=== PATIENT | female | born 1950 | race Hispanic/Latino ===

== ENCOUNTER 2024-12-30 14:01 | Observation (INO) | payer OTHER, MEDICAID ==
[~2024-12-30] VITALS: Ht 147.3 cm; Wt 49.4 kg
--- NOTE | 2024-12-30 14:09 | ERN ---
ED Note History of Present Illness Stated Complaint: RECURRENT UTI Chief Complaint: UTI without Fever Time Seen by MD: 14:03 Dictation: PATIENT IS A 74-YEAR-OLD FEMALE HERE WITH HER DAUGHTER WITH COMPLAINTS OF HAVING RECURRENT URINARY TRACT INFECTIONS FOR THE LAST THREE MONTHS. PATIENT HAS BEEN ON MACROBID AND THEN BACTRIM FROM HER PRIMARY CARE DOCTOR NO FLANK PAIN NO BACK PAIN SHE IS HAVING MILD SUPRAPUBIC TENDERNESS. Allergies: Coded Allergies: Penicillins (Unverified Allergy, Unknown, 12/30/24) Past Medical History History: Not Applicable RN Note Reviewed/Agreed w/PFSH: Yes Review of System Dictation CONSTITUTIONAL: NEGATIVE EXCEPT FOR HPI HEAD/FACE: NEGATIVE EXCEPT FOR HPI EENT: NEGATIVE EXCEPT FOR HPI RESPIRATORY: NEGATIVE EXCEPT FOR HPI GASTROINTESTINAL/ABDOMINAL: NEGATIVE EXCEPT FOR HPI GENITOURINARY: NEGATIVE EXCEPT FOR HPI DYSURIA WITH SUPRAPUBIC TENDERNESS MUSCULOSKELETAL: NEGATIVE EXCEPT FOR HPI INTEGUMENTARY: NEGATIVE EXCEPT FOR HPI NEUROLOGICAL/PSYCH: NEGATIVE EXCEPT FOR HPI HEMATOLOGIC/LYMPHATIC: NEGATIVE EXCEPT FOR HPI ALL SYSTEMS NEGATIVE, EXCEPT NOTED ABOVE. 13 POINT REVIEW OF SYSTEMS ASSESSED AND ALL NEGATIVE EXCEPT FOR ABOVE. Initial Vital Sign VS Vital Signs Date Time Temp Pulse Resp B/P (MAP) Pulse Ox O2 Delivery O2 Flow Rate FiO2 12/30/24 14:03 98.1 98 18 137/54 98 Room Air 0 12/30/24 16:23 21 Physical Exam Dictation VITAL SIGNS REVIEWED GENERAL APPEARANCE: ALERT, ORIENTED X 3, MILD ACUTE DISTRESS, WELL DEVELOPED, NOURISHED. HEAD AND FACE: NON-TRAUMATIC. EYES: PERRL, PINK CONJUNCTIVAS, EYELID NO TRAUMA, ANTERIOR CHAMBER WITH ARCUS SENILIS. EARS: PINNAS INTACT AND NO SIGNS OF TRAUMA OR ERYTHEMA EAR CANALS CLEAR AND NO DISCHARGE TM NO ERYTHEMA NOSE: NO DISCHARGE, NO BLEEDING. OROPHARYNX: MOUTH NORMAL, TONGUE PINK, PHARYNX CLEAR,NO ERYTHEMA, TONSILS NO EXUDATES, NO ABSCESSES NOTED, MUCOUS MEMBRANE MOIST NECK: SUPPLE, NON-TENDER, NO THYROMEGALY, NO MASSES, NO JVD, NO BRUITS BREAST:DEFERRED CHEST:NO TENDERNESS, NO CREPITUS, NO PARADOXICAL MOVEMENT, NO RETRACTIONS LUNGS:CLEAR, WELL-VENTILATED, SYMMETRIC, NO RALES, NO WHEEZING, NO RHONCHI, NO STRIDOR, GOOD BREATH SOUNDS BILATERALLY HEART: REGULAR RATE, REGULAR RHYTHM, NO MURMUR, NO GALLOPS VASCULAR: NO PERIPHERAL EDEMA, ABDOMEN: SOFT, POSITIVE BOWEL SOUNDS, NONDISTENDED, NO GUARDING, NONTENDER, NO REBOUND, NO MASSES NO HEPATOMEGALY, NO SPLENOMEGALY, NO AGUILAR'S SIGN, NO HERNIAS. MILD SUPRAPUBIC TENDERNESS WITH PALPATION NEGATIVE CVAT BILATERALLY RECTAL: DEFERRED GENITAL: DEFERRED NEUROLOGICAL: NORMAL SPEECH, MOTOR FUNCTION INTACT, SENSORY FUNCTION INTACT MUSCULOSKELETAL: NECK NONTENDER, FULL RANGE OF MOTION, BACK NONTENDER, FULL RANGE OF MOTION, EXTREMITIES: NONTENDER, FULL RANGE OF MOTION SKIN: COLOR PINK, DRY, NO TURGOR, NO RASH, NO LACERATIONS, NO ABRASIONS, NO CONTUSIONS. LYMPHATIC: DEFERRED Results (Laboratory/Radiology) Laboratory/Radiology Laboratory Tests Test 12/30/24 14:17 12/30/24 14:34 Urine Color YELLOW (YELLOW) Urine Appearance TURBID (CLEAR) Urine pH 6.5 (5.0-8.0) Urine Specific [place] 1.017 (1.001-1.031) Urine Protein 20 mg/dL (NEGATIVE) H Urine Glucose (UA) NEGATIVE mg/dL (NEGATIVE) Urine Ketones NEGATIVE mg/dL (NEGATIVE) Urine Occult Blood MODERATE (NEGATIVE) H Urine Nitrate NEGATIVE (NEGATIVE) Urine Bilirubin NEGATIVE mg/dL (NEGATIVE) Urine Urobilinogen 2.0 mg/dL (0.2-1.0) H Urine Leukocyte Esterase 500 Rad/uL (NEGATIVE) H Urine RBC 11-25 /HPF (0-1) H Urine WBC TNTC /HPF (0-1) H Urine WBC Clumps (Auto) MANY /HPF (0-1) Urine Squamous Epithelial Cells MOD /HPF (0-2) Urine Transitional Epithelial Cells MOD /HPF (None Seen) Urine Bacteria MANY /HPF (None Seen) White Blood Count 4.7 K/uL (4.8-10.8) L Red Blood Count 3.89 MIL/uL (4.00-5.50) L Hemoglobin 12.4 g/dL (12.0-16.0) Hematocrit 36.1 % (36-48) Mean Corpuscular Volume 92.8 fL (79-99) Mean Corpuscular Hemoglobin 31.9 pg (27.0-33.0) Mean Corpuscular Hemoglobin Concent 34.3 g/dL (32.0-36.0) Red Cell Distribution Width 12.9 % (11.0-15.5) Platelet Count 156 K/uL (130-400) Mean Platelet Volume 10.4 fL (7.5-10.5) Immature Granulocyte % (Auto) 0.2 % (0-1) Neutrophils (%) (Auto) 59.8 % (40.0-77.0) Lymphocytes (%) (Auto) 32.5 % (21.0-51.0) Monocytes (%) (Auto) 6.0 % (3.0-13.0) Eosinophils (%) (Auto) 1.1 % (0.0-8.0) Basophils (%) (Auto) 0.4 % (0.0-5.0) Neutrophils # (Auto) 2.8 K/uL (1.8-7.7) Lymphocytes # (Auto) 1.5 K/uL (1.0-4.8) Monocytes # (Auto) 0.3 K/uL (0.1-1.0) Eosinophils # (Auto) 0.05 K/uL (0.00-0.70) Basophils # (Auto) 0.02 K/uL (0.00-0.20) Absolute Immature Granulocyte (auto 0.01 K/uL (0-1) Nucleated Red Blood Cells 0.0 % (0.0-0.19) Sodium Level 134 mmol/L (136-145) L Potassium Level 3.6 mmol/L (3.5-5.1) Chloride Level 99 mmol/L (101-111) L Carbon Dioxide Level 31 mmol/L (21-32) Blood Urea Nitrogen 12 mg/dL (7-18) Creatinine 0.7 mg/dL (0.5-1.0) Glomerular Filtration Rate Calc 90 mL/min (>90) Random Glucose 100 mg/dL (70-105) Lactic Acid Level 1.6 mmol/L (0.8-2.5) Total Calcium 8.2 mg/dL (8.5-10.1) L Labs Reviewed?: Yes ED Course ED Course Orders Procedure Category Date Status Time Blood Cult ART 12/30/24 In Process 14:05 Lactic Acid LAB 12/30/24 Complete 14:05 Cbc With Differential LAB 12/30/24 Complete 14:05 Urinalysis Profile LAB 12/30/24 Complete 14:05 Basic Metabolic Panel LAB 12/30/24 Complete 14:05 0.9%Nacl 1000ml (Ns PHA 12/30/24 Complete 1000ml) 14:30 Culture Urine ART 12/30/24 In Process 14:31 Ceftriaxone 2gm Vial PHA 12/30/24 Complete (Rocephin 2gm Inj) 15:17 Current Medications Medications (Trade) Dose Ordered Sig/Yobany Route PRN Reason Start Time Stop Time Status Last Admin Dose Admin Ceftriaxone Sodium (Rocephin 2gm Inj) 2 gm ONCE STAT IVPB 12/30/24 15:17 12/30/24 15:25 DC 12/30/24 15:29 Sodium Chloride 1,000 ml @ 0 mls/hr ONCE ONCE IV 12/30/24 14:30 12/30/24 14:31 DC 12/30/24 14:40 Vital Signs Date Time Temp Pulse Resp B/P (MAP) Pulse Ox O2 Delivery O2 Flow Rate FiO2 12/30/24 16:23 98.1 95 18 138/56 98 Room Air* 0 21 12/30/24 14:03 98.1 98 18 137/54 98 Room Air 0 1615/SPOKE WITH FAMILY AT LENGTH REGARDING PATIENT HAS HAD RECURRENT URINARY TRACT INFECTIONS OVER THE LAST THREE MONTHS WITH OUTPATIENT TREATMENT FAILURE. FAMILY STATES SHE HAS BEEN MORE CONFUSED SINCE SHE STARTED HAVING THE URINARY TRACT INFECTIONS DESPITE THE OUTPATIENT ANTIBIOTIC THERAPY. THEY ARE ALSO AWARE THAT SHE HAS DEHYDRATED WOULD LIKE HER ADMITTED TO THE HOSPITAL FOR URINARY CULTURE AND SENSITIVITY, TREATMENT OF HER DEHYDRATION CONSULTATION WITH A UROLOGY.1635/SPOKE WITH , REVIEWED LABS, INTERVENTI ONS FOR UTI AND HYPOCHLOREMIA HE AGREED TO ADMIT. Medical Decision Making MDM MDM: DIFFERENTIAL DIAGNOSIS: UTI/SEPSIS/ELECTROLYTE IMBALANCE/DEHYDRATION/DEMENTIA/ALTERED MENTAL STATUS/OUTPATIENT TREATMENT FAILURE RATIONALE: TESTS CONSIDERED AND ORDERED SECONDARY TO SHARED DECISION MAKING INCLUDE: LABS, ECG AND RADIOLOGY PREVIOUS OUTSIDE RECORDS REVIEWED: OLD ER VISITS. RISK OF COMPLICATION AND/OR MORBIDITY OR MORTALITY OF PATIENT MANAGEMENT: NONE MEDICATIONS-PER MEDICATION RECONCILIATION NEED FOR HOSPITALIZATION: PATIENT DOES MEET CRITERIA FOR HOSPITALIZATION. IV FLUIDS IV ANTIBIOTICS AND UROLOGY CONSULTATION NEED FOR EMERGENCY MAJOR/MINOR SURGERY: NO THERE ARE NO SOCIAL CONCERNS WITH THIS PATIENT. PRESCRIPTION DRUG MANAGEMENT PRESCRIPTIONS WILL INCLUDE SYMPTOMATIC CARE PATIENT'S PRIOR EXTERNAL MEDICAL RECORDS FROM OTHER ER VISITS WERE REVIEWED BY ME INDICATED. PRIOR TESTING AND RESULTS FROM PREVIOUS VISITS WERE REVIEWED. PRIOR TESTS WERE TAKEN INTO ACCOUNT WITH MEDICAL DECISION MAKING AND RESOURCE UTILIZATION, INDEPENDENT HISTORIAN/HISTORIANS WERE USED TO OBTAIN COMPLETE MEDICAL HISTORY. I INDEPENDENTLY INTERPRETED THE TEST THAT WERE PERFORMED, RESULTS WERE REVIEWED BY ME AND CONSIDERED FINDINGS ON RADIOLOGY IF ORDERED. MEDICAL MANAGEMENT AND EXAMINATION INTERPRETATION DISCUSSIONS WERE HAD BY ME WITH OTHER QUALIFIED HEALTHCARE PROFESSIONALS INDICATED FOR THE PATIENT'S CARE. DX & DISP Disposition: Inpatient Decision to Admit Time: 16:17 Departure Impression: Primary Impression: Acute cystitis with hematuria Additional Impressions: Hyponatremia, Hypochloremia, Chronic anemia, Dementia, Failure of outpatient treatment Condition: Stable Referrals: SELF,REFERRAL (PCP) Time of Disposition: 16:17 I have reviewed the case, and I agree with, Diagnosis and Plan SKYLER ROWE NP Dec 30, 2024 14:09
[2024-12-30 14:30] LABS: APPEARANCE,URINE TURBID (CLEAR); GLUCOSE, URINE (UA) NEGATIVE (NEGATIVE); LEUKOCYTE ESTERASE ,URINE 500 Leu/uL (NEGATIVE); NITRATE,URINE NEGATIVE (NEGATIVE); OCCULT BLOOD,URINE MODERATE (NEGATIVE)
[2024-12-30 14:31] LABS: ADD UA MICROSCOPIC YES
[2024-12-30 14:38] LABS: SQUAMOUS EPITHELIAL CELL,UR MOD /HPF (0-2); WBC CLUMP MANY /HPF (0-1)
[2024-12-30] MEDS: 0.9%NACL 1000ML 1,000 ML IV ONE (14:40)
[2024-12-30 14:49] LABS: IMMATURE GRANULOCYTE ABSOLUTE 0.01 K/uL (0-1); NUCLEATED RED BLOOD CELLS 0.0 % (0.0-0.19); PLATELET COUNT (AUTO) 156 K/uL (130-400); RED BLOOD CELL COUNT(AUTO) 3.89 MIL/uL (4.00-5.50); RED CELL DISTRIBUTION WIDTH 12.9 % (11.0-15.5); WHITE BLOOD COUNT (AUTO) 4.7 K/uL (4.8-10.8)
[2024-12-30 15:03] LABS: CREATININE 0.7 mg/dL (0.5-1.0); GLOMERULAR FILTR. RATE CALC 90.0 mL/min (>90); GLUCOSE,RANDOM 100.0 mg/dL (70-105); SODIUM SERUM 134.0 mmol/L (136-145); UREA NITROGEN, BLOOD 12.0 mg/dL (7-18)
[2024-12-30] MEDS ORDERED: MEMA1CAP3 PO (18:00)
[2024-12-30] MEDS ORDERED: ROSU10TA98 PO (18:00)
[2024-12-30] MEDS ORDERED: METF-444 PO (18:00)
[2024-12-30] MEDS ORDERED: ASPI-1443 PO (18:00)
[2024-12-30] MEDS ORDERED: TELM20TA8 PO (18:00)
[2024-12-30] MEDS ORDERED: VORT20TA PO (18:00)
--- NOTE | 2024-12-30 18:01 | NUR ---
MEDICATIONS RECONCILED
--- NOTE | 2024-12-30 21:00 | HP ---
HISTORY AND PHYSICAL NOTE DATE OF CONSULTATION: 12/30/24 REASON FOR CONSULTATION: Dysuria HISTORY OF PRESENT ILLNESS: PATIENT IS A 74-YEAR-OLD FEMALE HERE WITH HER DAUGHTER WITH COMPLAINTS OF HAVING RECURRENT URINARY TRACT INFECTIONS FOR THE LAST THREE MONTHS. PATIENT HAS BEEN ON MACROBID AND THEN BACTRIM FROM HER PRIMARY CARE DOCTOR NO FLANK PAIN NO BACK PAIN SHE IS HAVING MILD SUPRAPUBIC TENDERNESS. Allergies: Coded Allergies: Penicillins (Unverified Allergy, Unknown, 12/30/24) Past Medical History History: Not Applicable RN Note Reviewed/Agreed w/PFSH: Yes Review of System Dictation CONSTITUTIONAL: NEGATIVE EXCEPT FOR HPI HEAD/FACE: NEGATIVE EXCEPT FOR HPI EENT: NEGATIVE EXCEPT FOR HPI RESPIRATORY: NEGATIVE EXCEPT FOR HPI GASTROINTESTINAL/ABDOMINAL: NEGATIVE EXCEPT FOR HPI GENITOURINARY: NEGATIVE EXCEPT FOR HPI DYSURIA WITH SUPRAPUBIC TENDERNESS MUSCULOSKELETAL: NEGATIVE EXCEPT FOR HPI INTEGUMENTARY: NEGATIVE EXCEPT FOR HPI NEUROLOGICAL/PSYCH: NEGATIVE EXCEPT FOR HPI HEMATOLOGIC/LYMPHATIC: NEGATIVE EXCEPT FOR HPI ALL SYSTEMS NEGATIVE, EXCEPT NOTED ABOVE. 13 POINT REVIEW OF SYSTEMS ASSESSED AND ALL NEGATIVE EXCEPT FOR ABOVE. ALLERGIES: Coded Allergies: Penicillins (Unverified Allergy, Unknown, 12/30/24) HOME MEDS: Reported Medications Telmisartan (Telmisartan) 20 Mg Tablet, 1 TAB PO DAILY for 30 Days, #30 TAB 0 Refills 12/30/24 Rosuvastatin Calcium (Rosuvastatin Calcium) 10 Mg Tablet, 20 MG PO DAILY, TAB 12/30/24 Memantine HCl/Donepezil HCl (Namzaric 28 mg-10 mg Capsule) 28 Mg-10 Mg Cap.spr.24, 1 CAP PO HS PRN for IF SBP GREATER THAN for 30 Days, #30 CAP 0 Refi lls 12/30/24 Aspirin (Aspirin EC) 81 Mg Tablet.dr, 1 TAB PO DAILY for 30 Days, #30 TAB 0 Refills 12/30/24 Metformin HCl (Metformin HCl) 500 Mg Tablet, 250 MG PO DAILY, TAB 12/30/24 Vortioxetine Hydrobromide (Brintellix) 20 Mg Tablet, 1 TAB PO DAILY for 30 Days, #30 TAB 0 Refills 12/30/24 INPATIENT MEDS: Current Medications Medications Dose Ordered Sig/Yobany Start Time Stop Time Status Last Admin Ceftriaxone Sodium 1 gm Q24H 12/31/24 09:00 01/07/25 23:55 Sodium Chloride 1,000 ml @ 100 mls/hr Q10H 12/30/24 17:00 01/29/25 16:59 Heparin Sodium (Porcine) 5,000 unit Q12H 12/30/24 21:00 01/07/25 23:55 VITAL SIGNS Vital Signs Date Time Temp Pulse Resp B/P (MAP) Pulse Ox O2 Delivery O2 Flow Rate FiO2 12/30/24 18:34 98.1 88 18 148/52 98 Room Air* 0 21 12/30/24 16:23 98.1 95 18 138/56 98 Room Air* 0 21 12/30/24 14:03 98.1 98 18 137/54 98 Room Air 0 PHYSICAL EXAM VITAL SIGNS REVIEWED GENERAL APPEARANCE: ALERT, ORIENTED X 3, MILD ACUTE DISTRESS, WELL DEVELOPED, NOURISHED. HEAD AND FACE: NON-TRAUMATIC. EYES: PERRL, PINK CONJUNCTIVAS, EYELID NO TRAUMA, ANTERIOR CHAMBER WITH ARCUS SENILIS. EARS: PINNAS INTACT AND NO SIGNS OF TRAUMA OR ERYTHEMA EAR CANALS CLEAR AND NO DISCHARGE TM NO ERYTHEMA NOSE: NO DISCHARGE, NO BLEEDING. OROPHARYNX: MOUTH NORMAL, TONGUE PINK, PHARYNX CLEAR,NO ERYTHEMA, TONSILS NO EXUDATES, NO ABSCESSES NOTED, MUCOUS MEMBRANE MOIST NECK: SUPPLE, NON-TENDER, NO THYROMEGALY, NO MASSES, NO JVD, NO BRUITS BREAST:DEFERRED CHEST:NO TENDERNESS, NO CREPITUS, NO PARADOXICAL MOVEMENT, NO RETRACTIONS LUNGS:CLEAR, WELL-VENTILATED, SYMMETRIC, NO RALES, NO WHEEZING, NO RHONCHI, NO STRIDOR, GOOD BREATH SOUNDS BILATERALLY HEART: REGULAR RATE, REGULAR RHYTHM, NO MURMUR, NO GALLOPS VASCULAR: NO PERIPHERAL EDEMA, ABDOMEN: SOFT, POSITIVE BOWEL SOUNDS, NONDISTENDED, NO GUARDING, NONTENDER, NO REBOUND, NO MASSES NO HEPATOMEGALY, NO SPLENOMEGALY, NO AGUILAR'S SIGN, NO HERNIAS. MILD SUPRAPUBIC TENDERNESS WITH PALPATION NEGATIVE CVAT BILATERALLY RECTAL: DEFERRED GENITAL: DEFERRED NEUROLOGICAL: NORMAL SPEECH, MOTOR FUNCTION INTACT, SENSORY FUNCTION INTACT MUSCULOSKELETAL: NECK NONTENDER, FULL RANGE OF MOTION, BACK NONTENDER, FULL RANGE OF MOTION, EXTREMITIES: NONTENDER, FULL RANGE OF MOTION SKIN: COLOR PINK, DRY, NO TURGOR, NO RASH, NO LACERATIONS, NO ABRASIONS, NO CONTUSIONS. LYMPHATIC: DEFERRED LABORATORY RESULTS Laboratory Tests 12/30/24 14:17: Urine Color YELLOW, Urine Appearance TURBID, Urine pH 6.5, Urine Specific [place] 1.017, Urine Protein 20, Urine Glucose (UA) NEGATIVE, Urine Ketones NEGATIVE, Urine Occult Blood MODERATE, Urine Nitrate NEGATIVE, Urine Bilirubin NEGATIVE, Urine Urobilinogen 2.0, Urine Leukocyte Esterase 500, Urine RBC 11-25, Urine WBC TNTC, Urine WBC Clumps (Auto) MANY, Urine Squamous Epithelial Cells MOD, Urine Transitional Epithelial Cells MOD, Urine Bacteria MANY 12/30/24 14:34: White Blood Count 4.7, Red Blood Count 3.89, Hemoglobin 12.4, Hematocrit 36.1, Mean Corpuscular Volume 92.8, Mean Corpuscular Hemoglobin 31.9, Mean Corpuscular Hemoglobin Concent 34.3, Red Cell Distribution Width 12.9, Platelet Count 156, Mean Platelet Volume 10.4, Immature Granulocyte % (Auto) 0.2, Neutrophils (%) (Auto) 59.8, Lymphocytes (%) (Auto) 32.5, Monocytes (%) (Auto) 6.0, Eosinophils (%) (Auto) 1.1, Basophils (%) (Auto) 0.4, Neutrophils # (Auto) 2.8, Lymphocytes # (Auto) 1.5, Monocytes # (Auto) 0.3, Eosinophils # (Auto) 0.05, Basophils # (Auto) 0.02, Absolute Immature Granulocyte (auto 0.01, Nucleated Red Blood Cells 0.0, Sodium Level 134, Potassium Level 3.6, Chloride Level 99, Carbon Dioxide Level 31, Blood Urea Nitrogen 12, Creatinine 0.7, Glomerular Filtration Rate Calc 90, Random Glucose 100, Lactic Acid Level 1.6, Total Calcium 8.2 PROBLEM LIST: (1) Acute cystitis with hematuria ICD Codes: N30.01 - Acute cystitis with hematuria (2) Failure of outpatient treatment ICD Codes: Z78.9 - Other specified health status (3) Hyponatremia ICD Codes: E87.1 - Hypo-osmolality and hyponatremia (4) Dementia ICD Codes: F03.90 - Unspecified dementia, unspecified severity, without behavioral disturbance, psychotic disturbance, mood disturbance, and anxiety PLAN IV antibiotics hydration monitor as an observation CLAIRE PETIT MD Dec 30, 2024 21:00
[2024-12-30] MEDS ORDERED: CLON0.5T4 PO (22:22)
[2024-12-30] MEDS ORDERED: ACET-66 PO (22:22)
[2024-12-30] MEDS: 1/2 NS 1000ML 1,000 ML IV SCH (22:41)
[2024-12-31 06:51] LABS: IMMATURE GRANULOCYTE ABSOLUTE 0.01 K/uL (0-1); NUCLEATED RED BLOOD CELLS 0.0 % (0.0-0.19); PLATELET COUNT (AUTO) 136 K/uL (130-400); RED BLOOD CELL COUNT(AUTO) 3.74 MIL/uL (4.00-5.50); RED CELL DISTRIBUTION WIDTH 12.6 % (11.0-15.5); WHITE BLOOD COUNT (AUTO) 4.0 K/uL (4.8-10.8)
[2024-12-31 07:02] LABS: ASPARTATE AMINOTRANSFERASE 47.0 U/L (10-37); CREATININE 0.6 mg/dL (0.5-1.0); GLOMERULAR FILTR. RATE CALC 93.0 mL/min (>90); GLUCOSE,RANDOM 79.0 mg/dL (70-105); SODIUM SERUM 140.0 mmol/L (136-145); TOTAL PROTEIN, SERUM 6.0 g/dL (6.0-8.3); UREA NITROGEN, BLOOD 10.0 mg/dL (7-18)
[2024-12-31 07:50] VITALS: BP 136/56; PULSE 56; RESP 14; TEMP 98.1; O2SAT 98
--- NOTE | 2024-12-31 10:06 | DS ---
Discharge Summary DIAGNOSE(S): [uti] HOSPITAL COURSE SUMMARY: [Patient with Alzheimer's dementia presented with more lethargy noted to have UTI treated with antibiotics with one dose she was back to her baseline is being discharged it appears her mental status has been fluctuant secondary to her dementia] COLORMAN(S): [None] PROCEDURE(S)/TREATMENT(S): [None] PROBLEM(S): [] FOLLOW-UP TEST(S): [Follow up with] DISCHARGE INSTRUCTIONS: [PCP in 2-3 days] Home Meds Reported Medications Acetaminophen (Acetaminophen) 500 Mg Tablet, 1 TAB PO Q6HPRN PRN for pain or fever for 15 Days, #60 TAB 0 Refills 12/30/24 Clonazepam (Clonazepam) 0.5 Mg Tablet, 1 TAB PO TIDP PRN for anxiety for 30 Days, #90 TAB 0 Refills 12/30/24 Telmisartan (Telmisartan) 20 Mg Tablet, 1 TAB PO DAILY for 30 Days, #30 TAB 0 Refills 12/30/24 Rosuvastatin Calcium (Rosuvastatin Calcium) 10 Mg Tablet, 20 MG PO DAILY, TAB 25 Memantine HCl/Donepezil HCl (Namzaric 28 mg-10 mg Capsule) 28 Mg-10 Mg Cap.s pr.24, 1 CAP PO HS PRN for IF SBP GREATER THAN for 30 Days, #30 CAP 0 Refills 12/30/24 Aspirin (Aspirin EC) 81 Mg Tablet.dr, 1 TAB PO DAILY for 30 Days, #30 TAB 0 Refills 12/30/24 Metformin HCl (Metformin HCl) 500 Mg Tablet, 250 MG PO DAILY, TAB 12/30/24 Vortioxetine Hydrobromide (Brintellix) 20 Mg Tablet, 1 TAB PO DAILY for 30 Days, #30 TAB 0 Refills 12/30/24 CLAIRE PETIT MD Dec 31, 2024 10:06
== END 2024-12-31 08:06 | disposition home or self-care (01) ==
LOC: EDH 14:01 → UNDOADMOB 16:35 → INTOOBSV 16:35 → EDHIP 16:35 → UNDODISOB 12-31 08:06
PROVIDERS: ADMIT Internal Medicine; ATTEND Internal Medicine
DX: N30.01 Acute cystitis with hematuria (principal); E87.1 Hypo-osmolality and hyponatremia; D64.9 Anemia, unspecified; G30.9 Alzheimer's disease, unspecified; F02.80 Dementia in other diseases classified elsewhere, unspecified severity, without behavioral disturbance, psychotic disturbance, mood disturbance, and anxiety; E87.8 Other disorders of electrolyte and fluid balance, not elsewhere classified; Z88.0 Allergy status to penicillin; Z79.899 Other long term (current) drug therapy; Z79.82 Long term (current) use of aspirin; Z98.890 Other specified postprocedural states
CPT/HCPCS: 96372; 96361 ×3; 99285; 80048; 85025 ×2; 87040 ×2; 87086 ×2; 87186; 83605; 81001; 36415 ×2; 96365; 80053; G0378 ×15; J7030; J0696; J1644

== ENCOUNTER 2025-05-09 09:12 | Emergency (ER) | payer OTHER, MEDICAID ==
[~2025-05-09] VITALS: Ht 160 cm; Wt 54.4 kg
[~2025-05-09 09:12] MED LIST: ACET-66 PO; ASPI-1443 PO; CLON0.5T4 PO; MEMA1CAP3 PO; METF-444 PO; ROSU10TA98 PO; TELM20TA8 PO; VORT20TA PO
[2025-05-09 09:57] LABS: IMMATURE GRANULOCYTE ABSOLUTE 0.02 K/uL (0-1); NUCLEATED RED BLOOD CELLS 0.0 % (0.0-0.19); PLATELET COUNT (AUTO) 141 K/uL (130-400); RED BLOOD CELL COUNT(AUTO) 4.29 MIL/uL (4.00-5.50); RED CELL DISTRIBUTION WIDTH 12.4 % (11.0-15.5); WHITE BLOOD COUNT (AUTO) 5.7 K/uL (4.8-10.8)
[2025-05-09 10:08] LABS: APPEARANCE,URINE TURBID (CLEAR); GLUCOSE, URINE (UA) NEGATIVE (NEGATIVE); LEUKOCYTE ESTERASE ,URINE 500 Leu/uL (NEGATIVE); NITRATE,URINE 2+ (NEGATIVE); OCCULT BLOOD,URINE SMALL (NEGATIVE)
[2025-05-09 10:10] LABS: ADD UA MICROSCOPIC YES
[2025-05-09 10:17] LABS: CREATININE 0.6 mg/dL (0.5-1.0); GLOMERULAR FILTR. RATE CALC 92.0 mL/min (>90); GLUCOSE,RANDOM 90.0 mg/dL (70-105); SODIUM SERUM 139.0 mmol/L (136-145); UREA NITROGEN, BLOOD 6.0 mg/dL (7-18)
[2025-05-09 10:18] LABS: ASPARTATE AMINOTRANSFERASE 34.0 U/L (10-37); TOTAL PROTEIN, SERUM 6.8 g/dL (6.0-8.3)
[2025-05-09 10:43] LABS: SQUAMOUS EPITHELIAL CELL,UR 0-2 /HPF (0-2)
[2025-05-09] MEDS ORDERED: CIPR-278 PO (11:33)
--- NOTE | 2025-05-09 11:33 | ERN ---
ED Note History of Present Illness Stated Complaint: FREQUENT URINATION Chief Complaint: Urinary Frequency Time Seen by MD: 09:32 Dictation: 75-year-old female presenting to the emergency department with urinary frequency over the past few days. No fever no chest pain no shortness a breath. Allergies: Coded Allergies: Penicillins (Unverified Allergy, Unknown, 12/30/24) Home Meds Reported Medications Acetaminophen (Acetaminophen) 500 Mg Tablet, 1 TAB PO Q6HPRN PRN for pain or fever for 15 Days, #60 TAB 0 Refills 12/30/24 Clonazepam (Clonazepam) 0.5 Mg Tablet, 1 TAB PO TIDP PRN for anxiety for 30 Days, #90 TAB 0 Refills 12/30/24 Telmisartan (Telmisartan) 20 Mg Tablet, 1 TAB PO DAILY for 30 Days, #30 TAB 0 Refills 12/30/24 Rosuvastatin Calcium (Rosuvastatin Calcium) 10 Mg Tablet, 20 MG PO DAILY, TAB 12/30/24 Memantine HCl/Donepezil HCl (Namzaric 28 mg-10 mg Capsule) 28 Mg-10 Mg Cap.spr.24, 1 CAP PO HS PRN for IF SBP GREATER THAN for 30 Days, #30 CAP 0 Refills 12/30/24 Aspirin (Aspirin EC) 81 Mg Tablet.dr, 1 TAB PO DAILY for 30 Days, #30 TAB 0 Refills 12/30/24 Metformin HCl (Metformin HCl) 500 Mg Tablet, 250 MG PO DAILY, TAB 12/30/24 Vortioxetine Hydrobromide (Brintellix) 20 Mg Tablet, 1 TAB PO DAILY for 30 Days, #30 TAB 0 Refills 12/30/24 Past Medical History Past Medical History: Anxiety, Arthritis, Dementia, Depression, Diabetes-Type II, High Cholesterol, Hypertension Surgical History: None History: Not Applicable Review of System Dictation Constitutional: Negative for fever,chills, and weight loss Eyes: Negative for injury, pain,redness, and discharge ENT: Negative for injury,pain or swelling Cardiovascular: Negative for chest pain, palpitations, and edema Respiratory: Negative for shortness of breath, cough, and wheezing, Abdomen/GI: Negative for abdominal pain, nausea, vomiting, diarrhea, and constipation Back: Negative for injury and pain : Per HPI MS/Extremity: Negative for injury and deformity Skin: Negative for rash, and discoloration Neuro: Negative for headache, weakness, numbness, tingling, and seizure Psych: Negative for suicide ideation, homicidal ideation, and hallucinations Initial Vital Sign VS Vital Signs Date Time Temp Pulse Resp B/P (MAP) Pulse Ox O2 Delivery O2 Flow Rate FiO2 05/09/25 09:13 97.7 78 16 123/68 98 Room Air 05/09/25 09:46 0 21 Physical Exam Dictation General: awake, alert, NAD Head/Face: Normocephalic, atraumatic Eyes: PERRL, EOMI, vision at baseline ENT: oral cavity clear, TMs clear, no signs of infection Neck: Trachea midline, supple, no nuchal rigidity Cardiovascular: RRR, normal S1/S2, No MRGs, no JVD Respiratory: CTAB, no respiratory distress, No rales or wheezes Abdomen: Soft, non-tender, non-distended, normal bowel sounds, no guarding or rebound. Skin: Warm, dry, normal turgor, no rash MS/Extremity: Pulses equal, no cyanosis, neurovascular intact, FROM Neuro: COAx4, GCS 15, strength 5/5, CN 2-12 intact, normal cerebellar exam, normal gait, Psych: Normal behavior, mood, and affect normal Results (Laboratory/Radiology) Laboratory/Radiology Laboratory Tests Test 05/09/25 09:39 05/09/25 09:41 White Blood Count 5.7 K/uL (4.8-10.8) Red Blood Count 4.29 MIL/uL (4.00-5.50) Hemoglobin 13.6 g/dL (12.0-16.0) Hematocrit 40.2 % (36-48) Mean Corpuscular Volume 93.7 fL (79-99) Mean Corpuscular Hemoglobin 31.7 pg (27.0-33.0) Mean Corpuscular Hemoglobin Concent 33.8 g/dL (32.0-36.0) Red Cell Distribution Width 12.4 % (11.0-15.5) Platelet Count 141 K/uL (130-400) Mean Platelet Volume 10.2 fL (7.5-10.5) Immature Granulocyte % (Auto) 0.3 % (0-1) Neutrophils (%) (Auto) 69.6 % (40.0-77.0) Lymphocytes (%) (Auto) 23.3 % (21.0-51.0) Monocytes (%) (Auto) 5.9 % (3.0-13.0) Eosinophils (%) (Auto) 0.7 % (0.0-8.0) Basophils (%) (Auto) 0.2 % (0.0-5.0) Neutrophils # (Auto) 4.0 K/uL (1.8-7.7) Lymphocytes # (Auto) 1.3 K/uL (1.0-4.8) Monocytes # (Auto) 0.3 K/uL (0.1-1.0) Eosinophils # (Auto) 0.04 K/uL (0.00-0.70) Basophils # (Auto) 0.01 K/uL (0.00-0.20) Absolute Immature Granulocyte (auto 0.02 K/uL (0-1) Nucleated Red Blood Cells 0.0 % (0.0-0.19) Sodium Level 139 mmol/L (136-145) Potassium Level 3.5 mmol/L (3.5-5.1) Chloride Level 103 mmol/L (101-111) Carbon Dioxide Level 30 mmol/L (21-32) Blood Urea Nitrogen 6 mg/dL (7-18) L Creatinine 0.6 mg/dL (0.5-1.0) Glomerular Filtration Rate Calc 92 mL/min (>90) Random Glucose 90 mg/dL (70-105) Total Calcium 8.8 mg/dL (8.5-10.1) Total Bilirubin 0.8 mg/dL (0.2-1.0) Direct Bilirubin 0.2 mg/dL (0.0-0.3) Aspartate Amino Transf (AST/SGOT) 34 U/L (10-37) Alanine Aminotransferase (ALT/SGPT) 56 U/L (12-78) Alkaline Phosphatase 65 U/L (50-136) Total Protein 6.8 g/dL (6.0-8.3) Albumin 3.6 g/dL (3.5-5.0) Urine Color LIGHT-ORANGE (YELLOW) Urine Appearance TURBID (CLEAR) Urine pH 7.5 (5.0-8.0) Urine Specific [place] 1.009 (1.001-1.031) Urine Protein 20 mg/dL (NEGATIVE) H Urine Glucose (UA) NEGATIVE mg/dL (NEGATIVE) Urine Ketones NEGATIVE mg/dL (NEGATIVE) Urine Occult Blood SMALL (NEGATIVE) H Urine Nitrate 2+ (NEGATIVE) H Urine Bilirubin NEGATIVE mg/dL (NEGATIVE) Urine Urobilinogen 0.2 mg/dL (0.2-1.0) Urine Leukocyte Esterase 500 Rad/uL (NEGATIVE) H Urine RBC 2-5 /HPF (0-1) H Urine WBC 11-25 /HPF (0-1) H Urine Squamous Epithelial Cells 0-2 /HPF (0-2) Urine Bacteria Many /HPF (None Seen) H Labs Reviewed?: Yes ED Course ED Course Orders Procedure Category Date Status Time Basic Metabolic Panel LAB 05/09/25 Complete 09: Cbc With Differential LAB 05/09/25 Complete : Hepatic Function Panel LAB 05/09/25 Complete : Urinalysis Profile LAB 05/09/25 Complete : Culture Urine ART 05/09/25 In Process 10:11 Ceftriaxone 2gm Vial PHA 05/09/25 Complete (Rocephin 2gm Inj) 10:58 Current Medications Medications (Trade) Dose Ordered Sig/Yobany Route PRN Reason Start Time Stop Time Status Last Admin Dose Admin Ceftriaxone Sodium (Rocephin 2gm Inj) 2 gm ONCE STAT IVPB 05/09/25 10:58 05/09/25 11:00 DC 05/09/25 11:03 Vital Signs Date Time Temp Pulse Resp B/P (MAP) Pulse Ox O2 Delivery O2 Flow Rate FiO2 05/09/25 10:30 97.9 81 20 121/41 97 Room Air* 0 21 05/09/25 09:46 97.9 81 20 119/76 97 Room Air* 0 21 05/09/25 09:13 97.7 78 16 123/68 98 Room Air Medical Decision Making MDM MDM: Differential diagnosis: Rationale: Tests considered and ordered secondary to shared decision making include: Previous outside records reviewed: Old ER visits. Risk of complication and/or morbidity or mortality of patient management: None Medications-Per medication reconciliation Need for hospitalization: Patient does not meet criteria for hospitalization. Need for emergency major/minor surgery: No There are no social concerns with this patient. Prescription drug management Prescriptions will include symptomatic care Patient's prior external medical records from other ER visits were reviewed by me as indicated. Prior testing and results from previous visits were reviewed. Prior tests were taken into account with medical decision making and resource utilization, independent historian/historians were used to obtain complete medical history. I independently interpreted the test that were performed, results were reviewed by me and considered findings on radiology if ordered. Medical management and examination interpretation discussions were had by me with other qualified healthcare professionals as indicated for the patient's care. 75-year-old female with dysuria mild UTI on UA, no fever no white count hemodynamically stable feels well wants to go home given one dose of IV antibiotics here and prescriptions given. DX & DISP Disposition: Discharge Departure Impression: Primary Impression: UTI (urinary tract infection) Condition: Stable Scripts Ciprofloxacin HCl (Cipro) 500 Mg Tablet 1 TAB PO BID for 7 Days, #14 TAB 0 Refills Prov: DELORES HERNANDEZ MD 05/09/25 Referrals: RAQUEL WILD MD (PCP) DELORES HERNANDEZ MD May 09, 2025 11:33
[2025-05-09 11:39] VITALS: BP 125/62; PULSE 80; RESP 20; TEMP 97.9; O2SAT 98
== END 2025-05-09 11:39 | disposition home or self-care (01) ==
LOC: EDH 09:12
DX: N39.0 Urinary tract infection, site not specified (principal); M19.90 Unspecified osteoarthritis, unspecified site; I10 Essential (primary) hypertension; F32.A Depression, unspecified; E78.00 Pure hypercholesterolemia, unspecified; E11.9 Type 2 diabetes mellitus without complications; F41.9 Anxiety disorder, unspecified; F03.90 Unspecified dementia, unspecified severity, without behavioral disturbance, psychotic disturbance, mood disturbance, and anxiety; Z88.0 Allergy status to penicillin; Z79.899 Other long term (current) drug therapy; Z79.84 Long term (current) use of oral hypoglycemic drugs; Z79.82 Long term (current) use of aspirin
CPT/HCPCS: 99284; 96365; 80076; 80048; 85025; 87086; 87186; 81001; 36415; J0696; 96372